=== PATIENT | male | born 1995 | race Caucasian/White ===

== ENCOUNTER 2017-07-05 17:18 | Emergency (ER) | payer OTHER ==
[2017-07-05 17:29] VITALS: BP 114/67
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
[2017-07-05 17:44] LABS: BILIRUBIN,URINE NEGATIVE (NEGATIVE)
[2017-07-05 17:45] LABS: UA CHARGE (STRIP ONLY) YES; UR CULTURE IF IND NOT INDICATED
== END 2017-07-05 18:58 | disposition home or self-care (01) ==
LOC: ED 17:18
DX: R55 Syncope and collapse (principal); F10.920 Alcohol use, unspecified with intoxication, uncomplicated
CPT/HCPCS: 80306; 81001; 81003; 87086; 93005; 99283; 99284